=== PATIENT | male | born 1975 | race African-American/Black ===

== ENCOUNTER 2017-10-05 17:27 | Emergency (ER) | payer MEDICAID ==
[~2017-10-05] VITALS: Ht 188 cm; Wt 120.2 kg
[2017-10-05] MEDS ORDERED: FAT BURNER (17:58)
[2017-10-05] MEDS ORDERED: LOTREL 10-20 M1 EACH ORAL (17:58)
[2017-10-05] MEDS ORDERED: Ketorolac 60mg Inj IM ONE (18:45)
--- NOTE | 2017-10-05 18:45 | Emergency Room Report ---
History of Present Illness General Chief Complaint: Headache Source: Patient Present Illness HPI 42 YO Male presents to the ED C/O 8 out of 10 in severity left-sided pulsatile headache 1.5 weeks that has been intermittent but present most days. Patient reports history of migraines in the past similar presentation. Patient states that usually they resolve sooner and this one has been persistent. Patient reports some dizziness which he describes as feeling off balance if he is lying on his left side and sits up too quickly. Patient denies symptoms of vertigo denies nausea, vomiting. He denies head trauma, history of high blood pressure , or recent back injury. Patient reports he has a history of thoracic outlet syndrome on the left side and he states that left sided neck muscle the Abdomen in the occipital area feels spasm, tight and radiates down towards the left shoulder. Patient denies unilateral upper extremity weakness, dysphagia, or visual changes. Patient reports nasal congestion bilaterally with moderate allergy exacerbation lately. Patient reports that at nighttime he can typically only breathe out of 1 nostril. Patient denies purulent drainage or sinus tenderness to palpation. Denies Cough, sore throat, CP, Palpitations, LOC, AMS, dizziness, Changes in Vision, Sensation, paresthesias, or a sudden severe headache. Allergies: Coded Allergies: No Known Allergies (Unverified , 10/05/17) Patient History Past Medical History: see triage record, migraines Past Surgical History: none Pertinent Family History: none Reviewed Nursing Documentation: PMH: Agreed; PSxH: Agreed Nursing Documentation-PMH Hx Hypertension: Yes Review of Systems All Other Systems: negative except mentioned in HPI Physical Exam Vital Signs Date Time Temp Pulse Resp B/P (MAP) Pulse Ox O2 Delivery O2 Flow Rate FiO2 10/05/17 17:55 98.7 77 17 158/100 97 Room Air 98.8 Sp02 EP Interpretation: reviewed, normal General Appearance: no apparent distress, alert, GCS 15, non-toxic Head: normocephalic, atraumatic Eyes: bilateral eye normal inspection, bilateral eye PERRL, bilateral eye EOMI ENT: hearing grossly normal, normal voice Neck: full range of motion, no meningismus, no bony tend, tender lateral Respiratory: chest non-tender, lungs clear, normal breath sounds, speaking full sentences Cardiovascular #1: regular rate, rhythm, normal capillary refill Cardiovascular #2: 2+ radial (R), 2+ radial (L) Musculoskeletal: back normal, gait/station normal, normal range of motion, tender - left paraspinous cervical musculature ttp, no midline ttp, some left side occipital ttp, FROM Neurologic: alert, oriented x3, responsive, motor strength/tone normal, sensory intact, normal gait, speech normal, no pronator, other - no facial droop. , grossly normal Psychiatric: judgement/insight normal Skin: normal color, no rash, warm/dry, well hydrated Lymphatic: no adenopathy Medical Decision Making PA Attestation Dr. Foster is my supervising Physician whom patient management has been discussed with. Diagnostic Impression: Primary Impression: Headache Qualified Codes: R51 - Headache Additional Impressions: Cervical paraspinal muscle spasm History of thoracic outlet syndrome ER Course 42 YO Male presents to the ED C/O 8 out of 10 in severity left-sided pulsatile headache 1.5 weeks that has been intermittent but present most days. Patient reports history of migraines in the past similar presentation. Patient states that usually they resolve sooner and this one has been persistent. Patient reports some dizziness which he describes as feeling off balance if he is lying on his left side and sits up too quickly. Patient denies symptoms of vertigo denies nausea, vomiting. He denies head trauma, history of high blood pressure , or recent back injury. Patient reports he has a history of thoracic outlet syndrome on the left side and he states that left sided neck muscle the Abdomen in the occipital area feels spasm, tight and radiates down towards the left shoulder. Patient denies unilateral upper extremity weakness, dysphagia, or visual changes. Patient reports nasal congestion bilaterally with moderate allergy exacerbation lately. Patient reports that at nighttime he can typically only breathe out of 1 nostril. Patient denies purulent drainage or sinus tenderness to palpation. Denies Cough, sore throat, CP, Palpitations, LOC, AMS, dizziness, Changes in Vision, Sensation, paresthesias, or a sudden severe headache. Ddx considered but are not limited to migraine, SAH, Pseudomotor Cerebri, Mass lesion, Cluster MASON, Tension MASON, Post lumbar puncture MASON, muscle spasm just to name a few. Vital signs: are WNL, pt. is afebrile H&PE are most consistent with left sided paraspinous cervical muscle spasm/ strain with associated MASON. No acute onset, similar to previous MASON's , no neurological deficits. ORDERS: -none required at this time. ED INTERVENTIONS: -Toradol IM -Reglan PO Upon reevaluation patient states that the above interventions have completely relieved his symptoms. Also patient that he will be discharged with muscle relaxers as I believe this may have triggered his headache. Also patient to refrain from strenuous workouts for about one week. -I do not identify an emergent condition at this time. With current presentation , pt. is stable for close outpatient follow up and conservative treatment. D/ w pt. to return promptly to ED with worsening or new symptoms.- Pt. verbalizes understanding and agreement with proposed treatment plan.proposed treatment plan. DISCHARGE: At this time pt. is stable for d/c to home. Will provide printed patient care instructions, and any necessary prescriptions. Care plan and follow up instructions have been discussed with the patient prior to discharge. Last Vital Signs Date Time Temp Pulse Resp B/P (MAP) Pulse Ox O2 Delivery O2 Flow Rate FiO2 10/05/17 17:55 98.7 77 17 158/100 97 Room Air 98.8 Disposition: HOME, SELF-CARE Condition: Stable Scripts Oxymetazoline HCl (Afrin) 15 Ml Dodge 2 SPRAYS NASAL TWICE A DAY, #15 ML Do not use for more than 3 days. Prov: Zuleyma Pa P.A. 10/05/17 Carisoprodol (SOMA) 250 Mg Tablet 250 MG PO Q6H, #1 TAB Prov: Zuleyma Pa P.A. 10/05/17 Loratadine/Pseudoephedrine (CLARITIN-D 12 HOUR TABLET) 1 Each Tab.er.12h 1 TAB ORAL EVERY 12 HOURS for 7 Days, #20 TAB Prov: Zuleyma Pa P.A. 10/05/17 Aspirin/Acetaminophen/Caffeine (EXCEDRIN MIGRAINE GELTAB) 1 Each Tablet 1 EACH PO Q8HR, #20 TAB Prov: Zuleyma Pa P.A. 10/05/17 Methocarbamol* (ROBAXIN*) 500 Mg Tablet 1000 MG PO TID, #42 TAB 0 Refills Prov: Zuleyma Pa P.A. 10/05/17 Patient Instructions: Migraine Headache, Sinus Headache Additional Instructions: Take medications as directed. ---- Take 1 "Soma/carisoprodol" tonight at bedtime. Then start taking "Robaxin/methocarbamol" for maintenance starting tomorrow, do not take both medications at the same time. Follow up with a Neurologist in 3-5 days, even if your symptoms have resolved. --Please review list of primary care clinics, if you do not already have a primary care provider Return sooner to ED if new symptoms occur, or current symptoms become worse. Do not drink alcohol, drive, or operate heavy machinery while taking Muscle Relaxers as this may cause drowsiness. - Please note that this Emergency Department Report was dictated using [email or web address] planner technology software, occasionally this can lead to erroneous entry secondary to interpretation by the dictation equipment. Zuleyma Pa October 05, 2017 18:45
[2017-10-05 18:48] VITALS: BP 158/100
[2017-10-05] MEDS ORDERED: EXCEDRIN MIGRA1 EACH PO (19:58)
[2017-10-05] MEDS ORDERED: CLARITIN-D 121 EAC1 ORAL (19:58)
[2017-10-05] MEDS ORDERED: SOMA250 MG PO (19:58)
[2017-10-05] MEDS ORDERED: ROBAXIN500 MG PO (19:58)
[2017-10-05 20:15] VITALS: BP 124/88
[2017-10-05] MEDS ORDERED: AFRIN NASAL SPR30 ML NASAL (20:24)
[2017-10-05 20:40] VITALS: BP 124/88
== END 2017-10-05 20:40 | disposition home or self-care (01) ==
LOC: EMR 18:45
DX: R51 Headache (principal); M62.838 Other muscle spasm; G54.0 Brachial plexus disorders
CPT/HCPCS: 96372; 99284

== ENCOUNTER 2019-07-24 20:37 | Emergency (ER) | payer MEDICAID ==
[~2019-07-24] VITALS: Ht 188 cm; Wt 122.5 kg
[~2019-07-24 20:37] MED LIST: AFRIN NASAL SPR30 ML NASAL; CLARITIN-D 121 EAC1 ORAL; EXCEDRIN MIGRA1 EACH PO; FAT BURNER; LOTREL 10-20 M1 EACH ORAL; ROBAXIN500 MG PO; SOMA250 MG PO
--- NOTE | 2019-07-24 20:55 | NUR ---
ED Nurse Note: Pt ambulated to ED from home c/o intermittent L sided chest pain 7/10 non radiating, headache and bilateral knee pain x3 weeks, pt had bilateral thigh-lift 3 weeks ago. VSS
--- NOTE | 2019-07-24 21:09 | Emergency Room Report ---
History of Present Illness General Chief Complaint: Pain Source: Patient Present Illness HPI Is a 44-year-old male who presents with complaint of chest pain and leg pain. He said the chest pain been ongoing for 4 to 5 days. Have cough and congestion. Has sinus drainage. Worse when he turned to the left side. Denies any fever. No nausea no vomiting. No diaphoresis. No exertional component. Worse with inspiration and coughing also. He also complained of bilateral knee pain. This been ongoing for a couple months. He said he has surgery on his thigh to remove fat. Since then is been hurting but he said it was swollen initially but the swelling gone down. But now he still having bilateral knee pain. He is worried that he may have a stroke or something. Allergies: Coded Allergies: ONDANSETRON (Verified Allergy, Unknown, 07/24/19) Patient History Past Medical History: see triage record, old chart reviewed Past Surgical History: none Pertinent Family History: none Social History: Denies: smoking Immunizations: other Reviewed Nursing Documentation: PMH: Agreed; PSxH: Agreed Nursing Documentation-PMH Hx Hypertension: Yes Review of Systems Eye: Denies: eye pain, blurred vision ENT: Denies: ear pain, nose congestion, throat swelling Respiratory: Denies: cough, shortness of breath Cardiovascular: Reports: chest pain, palpitations Gastrointestinal: Denies: abdominal pain, diarrhea, nausea, vomiting Musculoskeletal: Reports: joint pain; Denies: back pain Skin: Denies: rash Neurological: Denies: headache, numbness Endocrine: Denies: increased thirst, increased urine Hematologic/Lymphatic: Denies: easy bruising All Other Systems: negative except mentioned in HPI Physical Exam Vital Signs Date Time Temp Pulse Resp B/P (MAP) Pulse Ox O2 Delivery O2 Flow Rate FiO2 07/24/19 20:40 98.8 88 18 133/101 (112) 96 Room Air Vitals unremarkable Sp02 EP Interpretation: reviewed, normal General Appearance: well appearing, no apparent distress, alert Head: normocephalic, atraumatic Eyes: bilateral eye PERRL, bilateral eye EOMI ENT: hearing grossly normal, normal pharynx Neck: full range of motion, supple, no meningismus Respiratory: chest non-tender, lungs clear, normal breath sounds Cardiovascular #1: regular rate, rhythm, no murmur Gastrointestinal: normal bowel sounds, non tender, no mass, no organomegaly, no bruit, non-distended Musculoskeletal: back normal, normal range of motion, gait/station normal, other - Bilateral thigh with long surgical incision that is healing well. No redness or warmth. There is no edema to the knee. He walks without any problem. Psychiatric: mood/affect normal Medical Decision Making Diagnostic Impression: Primary Impression: Atypical chest pain Additional Impressions: Knee pain, bilateral Qualified Codes: M25.561 - Pain in right knee; M25.562 - Pain in left knee; G89.29 - Other chronic pain Upper respiratory infection Qualified Codes: J06.9 - Acute upper respiratory infection, unspecified ER Course Patient with atypical chest pain. He also has cough sore throat hoarseness and sinus congestion. Suspect this is secondary to an upper restaurant infection. No evidence of ACS, PE, dissection, pneumonia to name a few. His knee pain is chronic since his surgery. Sound like he had effusion initially but improving. There is no calf tenderness or thigh pain to indicate DVT. Will discharge home. EKG Diagnostic Results Rate: normal Rhythm: NSR ST Segments: no acute changes ASA given to the pt in ED: No Rhythm Strip Diag. Results EP Interpretation: yes Rate: 77 Rhythm: NSR, no PVC's, no ectopy Chest X-Ray Diagnostic Results Chest X-Ray Diagnostic Results : Chest X-Ray Ordered: Yes # of Views/Limited/Complete: 1 View Indication: Chest Pain EP Interpretation: Yes Interpretation: no consolidation, no effusion, no pneumothorax, no acute cardiopulmonary disease Impression: No acute disease Electronically Signed by: Dashawn Carlton MD Last Vital Signs Date Time Temp Pulse Resp B/P (MAP) Pulse Ox O2 Delivery O2 Flow Rate FiO2 07/24/19 20:40 98.8 88 18 133/101 (112) 96 Room Air Status: improved Disposition: HOME, SELF-CARE Condition: Stable Scripts Hydrocodone Bit/Acetaminophen 5-325* (NORCO 5-325*) 1 Each Tablet 1 TAB ORAL Q6H PRN for For Pain, #20 TAB 0 Refills Prov: Dashawn Carlton MD 07/24/19 Ibuprofen* (MOTRIN*) 600 Mg Tablet 600 MG ORAL THREE TIMES A DAY, #30 TAB 0 Refills Prov: Dashawn Carlton MD 07/24/19 Additional Instructions: Elevate leg. Ice pack to the area. You may need an MRI if not better. Follow- up your doctor in 7 days but return if symptoms worsen. Dashawn Carlton MD Jul 24, 2019 21:09
[2019-07-24 21:11] VITALS: BP 133/101
[2019-07-24] MEDS ORDERED: HYDROcodone/Acetamin 5/325 tab ORAL ONE (21:15)
[2019-07-24] MEDS ORDERED: IBUPROFEN600 MG ORAL (22:22)
[2019-07-24] MEDS ORDERED: NORCO 5-325 TA1 EACH ORAL (22:22)
--- NOTE | 2019-07-24 22:29 | NUR ---
ER DISCHARGE NOTE: Patient is cleared to be discharged per ERMD, pt is aox4, on room air, with stable vital signs. pt was given dc and prescription instructions, pt was able to verbalize understanding, pt id band and iv site removed without complications. pt is able to ambulate with steady gait. pt took all belongings. Pt reports pain has lessened
[2019-07-24 22:30] VITALS: BP 133/101
--- NOTE | 2019-07-25 09:14 | Diagnostic Imaging Report ---
Indication: Chest pain Technique: One view of the chest Comparison: none Findings: The lungs and pleural spaces are clear. The heart size is normal. The aorta is somewhat tortuous and ectatic Impression: No acute process
== END 2019-07-24 22:30 | disposition home or self-care (01) ==
LOC: EMR 22:30
DX: R07.9 Chest pain, unspecified (principal); M25.561 Pain in right knee; M25.562 Pain in left knee; G89.29 Other chronic pain; J06.9 Acute upper respiratory infection, unspecified; I10 Essential (primary) hypertension
CPT/HCPCS: 71045; 84484; 93005; Z7502; 99283